=== PATIENT | male | born 1980 | race Caucasian/White ===

== ENCOUNTER 2016-04-28 12:45 | Day surgery (SDC) | payer MEDICARE, MEDICAID ==
[~2016-04-28] VITALS: Ht 188 cm; Wt 121.1 kg
[~2016-04-28 12:45] MED LIST: BACT800T; COLA100C2; GABA300C3 PO; HYDROCODONE/APAP; LYRI75CA; NAPR500T; PANT40TA2 PO; PERC5TAB8; PERC7.5T8; PRED20TA PO; SKEL800T5; SOMA250T; TOPI200T4 PO; VICO5TAB; [UNRECOGNIZED DRUG - CODE]; [UNRECOGNIZED DRUG - CODE] PO
[2016-04-28] MEDS ORDERED: VANCOMYCIN HCL 1,000 MG, VIAL MATE ADAPTER 1 EACH in D5W 250 ML IV ONE (13:00)
[2016-04-28] MEDS ORDERED: CelecoXIB 400 MG CAP PO ONE (13:00)
[2016-04-28] MEDS ORDERED: LR 1,000 ML IV SCH ×2 (13:00→18:45)
[2016-04-28] MEDS ORDERED: PERCOCET 5MG/325MG TAB PO ONE (13:00)
[2016-04-28] MEDS ORDERED: PROPOFOL 200 MG/20 ML VIAL As Ordered ONE ×2 (14:28→17:55)
[2016-04-28] MEDS ORDERED: MIDAZOLAM INJ 2 MG/2 ML VIAL (J2250) As Ordered ONE (14:29)
[2016-04-28] MEDS ORDERED: fentaNYL 250 MCG/5 ML INJECTION (J3010) As Ordered ONE (14:29)
[2016-04-28] MEDS ORDERED: LIDOCAINE 2% INJ 100 MG/5 ML SDV (FOR ANES.) As Ordered ONE (14:29)
[2016-04-28] MEDS ORDERED: ROCURONIUM BROMIDE 50 MG/5 ML VIAL As Ordered ONE ×2 (14:29→16:24)
[2016-04-28] MEDS ORDERED: BUPIVACAINE/EPIN 0.25% 30 ML VIAL As Ordered ONE (14:48)
[2016-04-28] MEDS ORDERED: THROMBIN SOLN 20,000 UNITS KIT As Ordered ONE (14:48)
[2016-04-28] MEDS ORDERED: BACITRACIN PWD 50,000 UNITS VIAL As Ordered ONE (14:48)
[2016-04-28] MEDS ORDERED: dexameTHASONE 4 MG/ML 1ML VIAL (J1100) As Ordered ONE ×2 (16:24)
[2016-04-28] MEDS ORDERED: PHENYLephrine HCL 500 MCG/5 ML (100MCG/ML) SYRINGE (J2370) As Ordered ONE (16:26)
[2016-04-28] MEDS ORDERED: ePHEDrine SULFATE 25 MG/5 ML(5MG/ML) SYRINGE As Ordered ONE ×2 (16:26)
[2016-04-28] MEDS ORDERED: METOCLOPRAMIDE INJ 10MG/2ML VIAL (J2765) As Ordered ONE (16:28)
[2016-04-28] MEDS ORDERED: BACITRACIN PWD 50,000 UNITS VIAL XX ONE (16:52)
[2016-04-28] MEDS ORDERED: THROMBIN SOLN 20,000 UNITS KIT XX ONE (16:52)
[2016-04-28] MEDS ORDERED: BUPIVACAINE/EPIN 0.25% 30 ML VIAL XX ONE (16:52)
[2016-04-28] MEDS ORDERED: BACITRACIN PWD 50,000 UNITS VIAL IR ONE (16:52)
[2016-04-28] MEDS ORDERED: DESFLURANE 240 ML INHALANT As Ordered ONE (16:59)
[2016-04-28] MEDS ORDERED: GLYCOPYRROLATE INJ 0.2 MG/ML 2 ML VIAL As Ordered ONE (17:29)
[2016-04-28] MEDS ORDERED: NEOSTIGMINE 1MG/ML 5 ML SYRINGE (J2710) As Ordered ONE (17:29)
[2016-04-28] MEDS ORDERED: HYDROmorphone HCL 2 MG/ML 1ML VIAL (J1170) As Ordered ONE (17:29)
[2016-04-28] MEDS ORDERED: ONDANSETRON 4MG/2ML VIAL (J2405) As Ordered ONE (17:30)
[2016-04-28] MEDS ORDERED: PERCOCET 5MG/325MG TAB PO PRN (18:30)
[2016-04-28] MEDS ORDERED: HYDROmorphone HCL 1 MG/ML SYRINGE (J1170) IV PRN ×2 (18:30)
[2016-04-28] MEDS ORDERED: D5W/LR 1,000 ML IV SCH (18:30)
[2016-04-28] MEDS ORDERED: METOCLOPRAMIDE INJ 10MG/2ML VIAL (J2765) IV PRN (18:45)
[2016-04-28] MEDS ORDERED: fentaNYL 100 MCG/2 ML INJECTION (J3010) IV PRN (18:45)
[2016-04-28] MEDS ORDERED: MORPHINE 2 MG/ML 1ML SYRINGE IV PRN (18:45)
[2016-04-28] MEDS ORDERED: ONDANSETRON 4MG/2ML VIAL (J2405) IV PRN (18:45)
[2016-04-28] MEDS: PERCOCET 5MG/325MG TAB PO PRN ×2 (18:55→19:18)
--- NOTE | 2016-04-28 19:23 | REP ---
LUMBAR SPINE, ONE VIEW: HISTORY: Disc herniation. A single portable lateral radiograph was obtained. A metal probe is present overlying the neural arch at the L3-4 level. Signed by Chris Whtiley MD 04/28/2016 07:26 P
[2016-04-28 19:50] VITALS: BP 125/71
[2016-04-28 20:20] VITALS: BP 131/76
[2016-04-28 21:20] VITALS: BP 118/77
[2016-04-28 22:20] VITALS: BP 122/69
[2016-04-28 23:20] VITALS: BP 119/69
[2016-04-29] MEDS ORDERED: UNRESOLVED PATIENT OWN MED ORDER XX SCH (00:01)
[2016-04-29 00:20] VITALS: BP 115/71
[2016-04-29] MEDS: GABAPENTIN 400 MG CAP PO SCH ×2 (00:46→09:18)
[2016-04-29] MEDS: PERCOCET 5MG/325MG TAB PO PRN ×2 (00:47→04:44)
[2016-04-29 04:00] VITALS: BP 112/78
[2016-04-29 08:00] VITALS: BP 144/88
--- NOTE | 2016-04-29 08:38 | RO ---
DATE OF PROCEDURE: 04/28/2016 PREOPERATIVE DIAGNOSIS: Right lower extremity radiculopathy with foraminal disc herniation on right at L4-5. POSTOPERATIVE DIAGNOSIS: Right lower extremity radiculopathy with foraminal disc herniation on right at L4-5. PROCEDURE PERFORMED: Microdiscectomy L4-5, right with removal of foraminal disc herniation. SURGEON: Rg Maher MD [employer] SPECIALTY: ANESTHESIA: General. Estimated blood loss is less than 80 mL, replaced with crystalloid. No complications. INDICATIONS: Mr. Dejesus is a 35-year-old male with intractable discomfort radiating down the right leg and the MRI which reveals a foraminal disc herniation. INTRAOPERATIVE FINDINGS: Include large foraminal disc herniation. CONSENT: Reviewed in detail with patient, including kylie discussion of the pathology involved, the procedure proposed, alternatives including doing nothing and risks including but not limited to pain, failure, infection, bleeding, blood loss, incomplete relief, need for more surgery and other issues. The patient agrees to proceed with surgery. OPERATIVE COURSE: Identified in holding area. Site side verified. Brought to the operating room. Positioned on the Catracho frame for exposure of the lumbar spine. He is in the prone position. His previous incision from L5-S1 discectomy on the left was utilized as the basis for our new planned incision at 6 cm. Next, once he was sterilely prepped and draped in usual fashion, I began the procedure. I stood on the patient's right side. I utilized loupe magnification and a headlamp. The incision was outlined with a marking pen, infiltrated with 0.25% Marcaine with epinephrine and made with a #10 blade knife. The dissection was developed through skin and subcuticular tissues to the posterior lumbar fascia. Posterior lumbar fascia was then divided off the spinous process of L3, L4, and L5 to allow exposure of the L4-5 interspace up to the lamina of L3 because of the foraminal disc herniation. I drilled the inferior lamina of L3 and placed the Chavez-Dover probe and a cross-table lateral x-ray to verify our position. Next, irrigation was accomplished. I exchanged my loupe magnification for the microscope. Using the operating microscope and the high-speed bur, I removed the inferior lamina of the L4 level extending through the bare area of L4 to allow exposure of the neural foramina. I took care to preserve the pars interarticularis in this large gentleman. Next, once the exposure was sufficient, I swept the thecal sac medially and probed with a Chavez-Edgar and exposed the disc. I used the micropituitary to remove the disc, which traversed the neural foramina, and came out largely en bloc in one large section and one smaller resection. I then probed the neural foramina with the Chavez-Edgar probe and it was free from debris. There did not appear to be any additional significant removable disc material. The disc was bulging slightly centrally but this appeared to be more of a hard annulus. Next, irrigation was accomplished. The wound was closed with interrupted #0 Vicryl stitch, subdermal Vicryl stitch and a running Monocryl. Dressing was applied. Patient moved to recovery room good condition. The wound was irrigated with concentrated bacitracin solution prior to closure.
[2016-04-29] MEDS ORDERED: AMRIX PO SCH (09:00)
[2016-04-29] MEDS ORDERED: OMEPRAZOLE 20 MG CAP PO SCH (09:00)
== END 2016-04-29 11:45 | disposition home or self-care (01) ==
LOC: M SDC 12:45 → M PED 19:52 → M SDC 04-29 11:45
PROVIDERS: ATTEND Orthopaedic Surgery
DX: M54.16 Radiculopathy, lumbar region (principal); Z88.0 Allergy status to penicillin; Z91.013 Allergy to seafood; Z79.899 Other long term (current) drug therapy
CPT/HCPCS: 36415; 63030; 72110; 86850; 86900; 86901; 88304; 96374; 96375; 97161; G8978; G8979; G8980; J1100; J1170; J2250; J2370; J2405; J2710; J2765; J3010; J3370

== ENCOUNTER → 2017-05-20 | Outpatient (REF) | payer MEDICARE, MEDICAID ==
[2017-05-20 17:24] LABS: PLATELET COUNT, AUTOMATED 184 10^3/uL (150-450)
[2017-05-20 17:30] LABS: INR 0.98; PROTHROMBIN TIME 13.1 SECONDS (12.4-14.5)
[2017-05-20 17:31] LABS: PARTIAL THROMBOPLASTIN TIME 27.4 SECONDS (26.8-37.9)
[2017-05-20 17:48] LABS: COLLAGEN EPINEPHRINE 121 SECONDS (74-162)
[2017-05-20 18:14] LABS: ALBUMIN/GLOBULIN RATIO 1.33 (1.00-1.93); ALKALINE PHOSPHATASE 61 U/L (45-117); ALT/SGPT 43 U/L (12-78); ANION GAP 9 MEQ/L (8-16); AST/SGOT 24 U/L (7-37); BILIRUBIN,TOTAL 0.3 MG/DL (0.2-1.0); BLOOD UREA NITROGEN 17 MG/DL (7-18); CALCIUM LEVEL 8.7 MG/DL (8.5-10.1); CARBON DIOXIDE LEVEL 29 MEQ/L (21-32); CHLORIDE LEVEL 105 MEQ/L (98-107); CREATININE FOR GFR 0.84 MG/DL (0.70-1.30); GLOMERULAR FILTRATION RATE > 60.0 (>60); GLUCOSE, FASTING 99 MG/DL (70-100); POTASSIUM SERUM 4.2 MEQ/L (3.5-5.1); SODIUM LEVEL 143 MEQ/L (136-145)
== END ==
LOC: M LABDRAW1 15:55
DX: Z01.818 Encounter for other preprocedural examination (principal); M51.27 Other intervertebral disc displacement, lumbosacral region; M51.16 Intervertebral disc disorders with radiculopathy, lumbar region; Z79.891 Long term (current) use of opiate analgesic
CPT/HCPCS: 80053

== ENCOUNTER → 2018-07-12 | Outpatient (REF) ==
[~2018-07-12] MED LIST changes: +CELE1CAP88; +GABA-843 PO; -GABA300C3 PO; -PANT40TA2 PO; +PANT40TA3 PO; -TOPI200T4 PO; +TOPI200T7 PO; -[UNRECOGNIZED DRUG - CODE]; +[UNRECOGNIZED DRUG - CODE] PO; -[UNRECOGNIZED DRUG - CODE] PO
== END ==
LOC: M LAB LCGH 14:54
PROVIDERS: ATTEND Surgery
DX: R10.9 Unspecified abdominal pain (principal)

== ENCOUNTER → 2018-07-20 | Outpatient (REF) | payer MEDICARE, MEDICAID | LOC: M LAB LCGH 10:25 | PROVIDERS: ATTEND Surgery | DX: R10.9 Unspecified abdominal pain (principal) ==